=== PATIENT | female | born 1995 | race Caucasian/White ===

== ENCOUNTER → 2019-06-26 | Outpatient (CLI) | payer BC ==
--- NOTE | 2019-06-26 18:58 | EKG REPORT ---
SEVERITY:- BORDERLINE ECG - SINUS RHYTHM SHORT IN INTERVAL, ACCELERATED AV CONDUCTION BORDERLINE ST DEPRESSION, LATERAL LEADS : Confirmed by: Dilshad Goldstein MD 26-Jun-2019 18:57:43
== END ==
LOC: OD 13:16
PROVIDERS: ATTEND Nurse Practitioner Family
DX: R00.2 Palpitations (principal)
CPT/HCPCS: 93005; 93010